=== PATIENT | male | born 2000 | race Caucasian/White ===

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

== ENCOUNTER 2022-06-23 11:42 | Emergency (ER) | payer MEDICAID, SELFPAY ==
[2022-06-23 11:54] VITALS: BP 143/82; PULSE 112; RESP 18; TEMP 36.8; O2SAT 97; BMI 22.3
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
[2022-06-23] MEDS: HYDROcodone-acetaminophen 7.5-325 mg Tablet 1 TAB PO (13:04)
== END 2022-06-23 14:34 | disposition home or self-care (01) ==
PROVIDERS: Emergency Provider Physician Assistant
DX: Z04.1 Encounter for examination and observation following transport accident (principal); F17.200 Nicotine dependence, unspecified, uncomplicated; V59.9XXA Occupant (driver) (passenger) of pick-up truck or van injured in unspecified traffic accident, initial encounter
CPT/HCPCS: 70450; 71110; 72072; 99284

== ENCOUNTER 2022-12-29 13:18 | Emergency (ER) | payer MEDICAID, SELFPAY ==
[2022-12-29 13:22] VITALS: BP 130/88; PULSE 68; RESP 15; TEMP 37; O2SAT 97; BMI 21.6
--- NOTE | 2022-12-29 13:29 | ED_ITS ---
HPI - Wound/Laceration General: Chief Complaint: Wound/Laceration Stated Complaint: head lac Time Seen by Provider: 12/29/22 13:20 Source: patient Mode of arrival: ambulatory Limitations: no limitations History of Present Illness: Patient is a 22-year-old male who presents to ED today for evaluation of a head injury/scalp laceration. He states he was walking in his home when he accidentally tripped and struck the left side of his scalp on his home thermostat that was on the wall sustaining a laceration. No LOC. He complains of a headache. No visual changes. He has not had any vomiting. No altered mental status. Tetanus UTD. Onset (ago): hour(s) Location: scalp Place: home Patient tetanus UTD: Yes Context: accidental Associated symptoms: Reports other (headache); Denies nausea or vomiting Treatments prior to arrival: other (irrigation) Review of Systems Eyes: Denies: change in vision, blurry vision, photophobia, floaters or seeing flashes GI: Denies: nausea or vomiting Musc: Denies: neck pain Skin/Breast: Reports: other (scalp laceration) Neuro: Reports: headache(s); Denies: numbness in extremities, weakness in extremities, sensory changes, lack of coordination, difficulty walking, frequent falls, dizziness, vertigo, confusion, behavioral changes, Slurred speech present or difficulty communicating thoughts [facility] ED PFSH: Medical History No pertinent family history Surgical History No pertinent past surgical history Social History Smoking and tobacco status: current every day smoker smokeless tobacco Physical Exam Const: COMMON NORMALS: no acute distress, average body habitus, patient oriented x3, no limitations, healthy appearing, alert and well nourished GENERAL APPEARANCE: cooperative ORIENTATION/CONSCIOUSNESS: Yes awake, Yes oriented to person, Yes oriented to place and Yes oriented to time HENMT: COMMON NORMALS: normocephalic and TM's normal bilaterally HEAD & SCALP: normocephalic and laceration HEAD IMAGES: 1. 1.5cm superficial scalp laceration FACE & SINUS: normal facial exam TYMPANIC MEMBRANE: TM's normal bilaterally Eye: GENERAL EYE: appearance normal, both eyes and all related structures and normal light reflex DIRECT OPHTHALMOSCOPY: Yes normal light reflex Neck/C-Spine: COMMON NORMALS: full ROM CERVICAL SPINE: No Cervical spine tenderness Neuro: MAXI COMA SCALE: document [facility] findings [place] coma scale eye opening: Spontaneous [place] coma scale verbal response: Orientated Maxi coma scale motor response: Obey commands Maxi coma scale total score: 15 COMMON NORMALS: patient oriented x3, CN's II-XII intact bilaterally, moves all extremities, no focal motor deficits, no sensory deficits noted and gait normal SENSORIUM/ORIENTATION: Yes alert, Yes oriented to person, Yes oriented to place and Yes oriented to time Skin: TRAUMA: laceration (left scalp) Procedures Laceration Laceration 1: Site: scalp Side (If applicable): left Size (cm): 1.5 Description: linear Depth: simple, single layer Local Anesthetic: lidocaine 2% Amount of anesthesia used (mL): 2.0 Pre-repair: wound explored and irrigated extensively Skin layer closed with: other (debbie) Number of sutures: 4 Course Vital Signs: Vital signs: Vital Signs Temperature 98.6 F 12/29/22 13:22 Pulse Rate 68 12/29/22 13:22 Respiratory Rate 15 12/29/22 13:22 Blood Pressure 130/88 12/29/22 13:22 Pulse Oximetry 97 12/29/22 13:22 Oxygen Delivery Me thod Room Air 12/29/22 13:22 MDM - Wound/Laceration Medical Decision Making Wound copiously irrigated and repaired as documented. Tetanus is up-to-date. Patient's mechanism of injury is extremely low and I do not feel emergent CT imaging is warranted. Strict return ED precautions given. Wound care/infection precautions discussed. Discharge Plan Discharge Patient Disposition: Home Clinical Impression: Laceration of scalp Qualifiers: Encounter type: initial encounter Qualified Code(s): S01.01XA - Laceration without foreign body of scalp, initial encounter Condition: Stable Prescriptions: No Action ondansetron 4 mg tablet,disintegrating 4 mg PO Q8H PRN (Reason: nausea and vomiting) Qty: 20 0RF doxycycline hyclate 100 mg tablet 100 mg PO BID 10 Days Qty: 20 0RF Celebrex 100 mg capsule 100 mg PO BID PRN (Reason: pain) Qty: 20 0RF methocarbamol 750 mg tablet 750 mg PO Q8H PRN (Reason: pain and muscle spasms) Qty: 20 0RF Discharge Orders: Discharge ED (Routine); Ordered 12/29/22 Ordered By: Selma Johnson Patient Instructions: Scalp Laceration, Head Injury (DC), Staple Care (ED) Activity Restrictions/Additional Instructions: Keep wound/laceration clean with warm soap and water twice daily. Monitor for signs of infection such as redness, swelling, increased pain, or drainage. Please seek medical re-evaluation if these occur. If you received sutures/debbie today these will need to be removed (unless you were told by the provider that they are absorbable). The provider should have discussed with you the length of time until removal-5 TO 7 DAYS. You may return to the emergency department for this service. Coding Level of Care Code ED Animal Impersonator for Callie Wheeler
[2022-12-29] MEDS: lidocaine 2% INJ 20 mL INJECTION (14:16)
--- NOTE | 2023-01-07 21:39 | PC.NURSE ---
Pt returned for staple removal. 4 debbie removed from left frontal scalp. Wound well approximated.
== END 2022-12-29 14:17 | disposition home or self-care (01) ==
PROVIDERS: Emergency Provider Physician Assistant
DX: S01.01XA Laceration without foreign body of scalp, initial encounter (principal); F17.220 Nicotine dependence, chewing tobacco, uncomplicated; W01.198A Fall on same level from slipping, tripping and stumbling with subsequent striking against other object, initial encounter
CPT/HCPCS: 99282